=== PATIENT | male | born 1960 | race Caucasian/White ===

== ENCOUNTER 2017-09-10 07:10 | Day surgery (SDC) | payer BC ==
--- NOTE | 2017-09-04 16:17 | RAD REPORT ---
EXAM DESCRIPTION: RADOP - Outpt Chest Pa/Lat (2 Views) - 09/04/2017 4:09 pm CLINICAL HISTORY: Preop, abdominal pain. COMPARISON: None. FINDINGS: The lungs are clear. The heart is normal in size. No displaced fractures. IMPRESSION: No acute or concerning finding suspected.
--- NOTE | 2017-09-04 16:26 | EKG ---
Test Date: 2017-09-04 Test Time: 16:11:02 Powder Monkey: FABIO MEASUREMENT RESULTS: Intervals: Rate: 50 KS: 156 QRSD: 80 QT: 420 QTc: 382 [place]: P: 55 KS: 156 QRS: -30 T: 27 INTERPRETIVE STATEMENTS: Sinus bradycardia Left axis deviation Abnormal ECG No previous ECG available for comparison Electronically Signed On 09-04-17 16:26:18 CDT by Jin Stovall
[2017-09-04 17:02] LABS: Potassium 4.2 mEq/L (3.6-5.0)
[2017-09-04 17:04] LABS: Absolute Lymphocytes (CBC) 1.6 K/uL (0.7-4.9); Absolute Monocytes 0.5 K/uL (0.1-1.3); Absolute Neutrophil 3.3 K/uL (1.8-8.0); Basophils % 0.5 % (0-1.3); Eosinophils % 3.8 % (0-4.4); Hematocrit 42.9 % (39.6-49.0); MCH 32.1 pg (27.0-35.0); MCV 92.8 fL (80-100); MPV 9.5 fL (7.6-11.3); Monocytes % 8.3 % (3.3-12.3); RBC Red Blood Cell Count 4.62 M/uL (4.33-5.43)
[2017-09-10] MEDS ORDERED: Ringers Lactate 1,000 ML IV ONE ×2 (07:43→09:32)
[2017-09-10] MEDS ORDERED: CEFAZOLIN/SWI 1gm 1 GM/10 ML SYR ONE (07:43)
[2017-09-10] MEDS ORDERED: BUPIVACAINE 0.5% PF 10 ML VIAL ONE (07:53)
--- NOTE | 2017-09-10 09:16 | P.BOP ---
Preoperative diagnosis: left inguinal hernia Postoperative diagnosis: same Primary procedure: Laparoscopic left inguinal hernia Director Of Sustainable Design: DARIUS HICKS Estimated blood loss: <10cc Specimen: none Anesthesia: General Complications: None Transferred to: Recovery Room Condition: Good
[2017-09-10] MEDS ORDERED: DEXAMETHASONE 10 MG/ML VIAL ONE (09:31)
[2017-09-10] MEDS ORDERED: LIDOCAINE 2% MPF 5 ML VIAL ONE (09:31)
[2017-09-10] MEDS ORDERED: GLYCOPYRROLATE 0.2 MG/ML SYR ONE (09:31)
[2017-09-10] MEDS ORDERED: ROCURONIUM 50 MG/5 ML VIAL IV ONE (09:31)
[2017-09-10] MEDS ORDERED: ONDANSETRON 4 MG/2 ML VIAL ONE (09:31)
[2017-09-10] MEDS ORDERED: FENTANYL CITR 100 MCG/2 ML ONE (09:31)
[2017-09-10] MEDS ORDERED: MIDAZOLAM HCL 2 MG/2 ML INJ ONE (09:31)
[2017-09-10] MEDS ORDERED: PROPOFOL 200 MG/20 ML VIAL IV ONE (09:31)
[2017-09-10] MEDS ORDERED: KETOROLAC 30 MG/ML INJ ONE (09:36)
[2017-09-10] MEDS ORDERED: NEOSTIGMINE 1 MG/ML -5 ML SYRINGE ONE (09:36)
[2017-09-11] MEDS ORDERED: TAMSULOSIN 0.4 MG SR CAP PO SCH (09:00)
--- NOTE | 2017-09-16 03:56 | OP ---
Date of Procedure: 09/10/2017 Surgeon: Nir Escoto MD Preoperative Diagnosis: Tender left inguinal hernia. Postoperative Diagnosis: Tender left inguinal hernia. Procedure Performed: Laparoscopic repair of left inguinal hernia with mesh. Specimen: None. Anesthesia: General plus local. Complications: None. Indications: This is the case of a male who came to us with a left inguinal hernia with tenderness. The benefits, alternatives, and risks of laparoscopic versus open repair were fully explained to the patient, which included but were not limited to infection, bleeding, damage to adjacent structures, anesthesia complications, chronic numbness, chronic pain, recurrence, DC, and even . He also un derstands this may not relieve any symptoms, and he might need more than one surgical intervention. He understands also chance of bladder injuries, vas deferens and testicular injuries, nerve injuries, and vascular injuries. He understands the pros and cons of mesh placement that were explained to rosita schroeder in detail, and questions were answered to his satisfaction. He understood and signed a consent. Description Of Procedure: The patient was brought to the operating room, placed in supine position. Anesthesia was done without complication. Abdominal area and inguinal region were prepped and drape d in the usual sterile fashion. A time-out was called. The patient was placed in the Trendelenburg position. A small incision was made in the infraumbilical region. The anterior rectus sheath was id entified, opened on the left side, and the muscle was retracted laterally to expose the posterior rec tus sheath. The extraperitoneal space was then developed with the use of blunt dissection and also a balloon pacemaker tip as trocar device directed toward the pubic symphysis. The scope was placed in that area, and the balloon was inflated under direct visualization to create the extraperitoneal spa ce. The balloon was removed. We insufflated the area. We proceeded to place a 5-mm trocar just abo ve the pubic symphysis and another one mcfp between the first and the second one. The preperitone al space was further developed by exposing the inferior epigastric vessels and keeping them anterior. Trace ligament was dissected laterally to the junction with the iliac veins. The dissection was c ontinued inferiorly to the iliopubic tract, avoiding damage to the femoral branch of the genitofemora l nerve and lateral femoral cutaneous nerve. The cord structures were visualized and carefully skele tonized. The hernia was identified and reduced by gentle traction into the peritoneal space. A 2D m esh was placed over the area through the trocar site and aligned with the structures in the area. Th e mesh was placed along the inferior aspect of the working space, and the area covered the direct and indirect spaces. The mesh was secured in place laterally and superior to the iliopubic tract and in ferior and medial to the Trace ligament. The area was checked for hemostasis. The area was irrigat ed. Local anesthetic was applied over the area and carefully was deflated under direct visualization . Trocars were removed. The patient tolerated the procedure well. At the end of the case, the test icles were in the scrotum. The skin area was closed with first the fascia with #1 Vicryl, and then t he skin in subcuticular fashion with 3-0 chromic. Sponge counts and instrument counts were correct. The patient tolerated the procedure well. The patient was sent to Recovery in stable condition. DISCHARGE SUMMARY Diagnosis: Left inguinal hernia. Procedure: Laparoscopic repair of left inguinal hernia. Disposition: Home. Activity: As tolerated. No heavy lifting. Followup: Follow up in my office in 1 week. Call for appointment at [phone]. Keep the area dry fo r 48 hours and then may shower. Apply cold compresses over the left inguinal region. Medications: See orders. CHILO/ISAAC Voice ID: [id number] Report ID: [id number]
== END 2017-09-10 12:20 | disposition home or self-care (01) ==
LOC: OR 07:10
PROVIDERS: ATTEND Surgery
PROC: 0YU64JZ Supplement Left Inguinal Region with Synthetic Substitute, Percutaneous Endoscopic Approach (ICD-10-PCS; principal; 2017-09-10 08:45)
DX: K40.90 Unilateral inguinal hernia, without obstruction or gangrene, not specified as recurrent (principal)
CPT/HCPCS: 36415; 71046; 80048; 85025; 93005; J0690; J1100; J2250; J2405; J2710; J3010

== ENCOUNTER 2017-11-23 04:15 | Emergency (ER) | payer BC ==
[2017-11-23] MEDS ORDERED: DEXAMETHASONE 10 MG/ML VIAL ONE (05:27)
[2017-11-23] MEDS ORDERED: DIAZEPAM 5 MG TABLET ONE (05:27)
[2017-11-23] MEDS ORDERED: KETOROLAC 30 MG/ML INJ ONE (05:27)
[2017-11-23] MEDS ORDERED: NA CHLORIDE 0.9% 1,000 ML ONE (05:27)
[2017-11-23] MEDS ORDERED: ONDANSETRON 4 MG/2 ML VIAL ONE (05:29)
[2017-11-23] MEDS ORDERED: MORPHINE 4 MG/ML SYR ONE (05:30)
[2017-11-23 05:51] LABS: Absolute Monocytes 0.6 K/uL (0.1-1.3); Absolute Neutrophil 3.6 K/uL (1.8-8.0); Basophils % 0.4 % (0-1.3); Eosinophils % 4.4 % (0-4.4); Hematocrit 44.6 % (39.6-49.0); Lymphocytes % 30.7 % (15.3-44.8); MCH 32.3 pg (27.0-35.0); MCV 92.6 fL (80-100); MPV 8.7 fL (7.6-11.3); Monocytes % 9.5 % (3.3-12.3); RBC Red Blood Cell Count 4.82 M/uL (4.33-5.43)
[2017-11-23 05:58] LABS: Albumin 4.4 g/dL (3.2-5.5); Bilirubin Total 0.9 mg/dL (0.3-1.2); Protein, Total 7.3 g/dL (6.0-8.3)
[2017-11-23 06:50] LABS: Urine Blood NEGATIVE (NEG); Urine Glucose NEGATIVE (NEG); Urine Protein NEGATIVE (NEG)
--- NOTE | 2017-11-23 07:22 | EDPHYS ---
Physician Documentation [facility] Name: Dayne Pulido Age: 57 yrs Sex: Male : 1960 Arrival Date: 11/23/2017 Time: 04:18 Bed 16 Private MD: ED Physician aSnjiv Lorenzo HPI: 11/23 05:13 This 57 yrs old Male presents to ER via Wheelchair with complaints of Back royal Pain. 05:13 The patient presents with pain that is acute. The symptoms are located in the posterior royal cervical area and thoracic area. Onset: The symptoms/episode began/occurred 3 day(s) ago. The pain radiates to the left trapezius and thoracic area. Associated signs and symptoms: The patient has no apparent associated signs or symptoms. The problem was sustained from twisting, from unknown cause. Modifying factors: the patient symptoms are aggravated by bending, coughing, movement, standing. Severity of symptoms: At their worst the symptoms were moderate, in the emergency department the symptoms are unchanged. The patient has not experienced similar symptoms in the past. Historical: - Allergies: 05:34 No Known Allergies; bs1 - Home Meds: 05:35 Propranolol Oral as needed [Active]; bs1 - PMHx: 05:34 right hand tremor; bs1 - PSHx: 05:34 hernia sx; bs1 - Immunization history:: Adult Immunizations up to date. - Social history:: Smoking status: Patient/guardian denies using tobacco. - Family history:: not pertinent. - Ebola Screening: : Patient negative for fever greater than or equal to 101.5 degrees Fahrenheit, and additional compatible Ebola Virus Disease symptoms Patient denies exposure to infectious person. ROS: 05:13 Constitutional: Negative for fever, chills, and weight loss, Eyes: Negative for injury, royal pain, redness, and discharge, ENT: Negative for injury, pain, and discharge, Cardiovascular: Negative for chest pain, palpitations, and edema, Respiratory: Negative for shortness of breath, cough, wheezing, and pleuritic chest pain, Abdomen/GI: Negative for abdominal pain, nausea, vomiting, diarrhea, and constipation, : Negative for injury, bleeding, discharge, and swelling, MS/Extremity: Negative for injury and deformity, Skin: Negative for injury, rash, and discoloration, Neuro: Negative for headache, weakness, numbness, tingling, and seizure. 05:13 Neck: Positive for pain with movement, pain at rest, tenderness, of the back and left trapezius and thoracic area and posterior cervical area. Exam: 05:13 Constitutional: This is a well developed, well nourished patient who is awake, alert, royal and in no acute distress. Head/Face: Normocephalic, atraumatic. Eyes: Pupils equal round and reactive to light, extra-ocular motions intact. Lids and lashes normal. Conjunctiva and sclera are non-icteric and not injected. Cornea within normal limits. Periorbital areas with no swelling, redness, or edema. ENT: Nares patent. No nasal discharge, no septal abnormalities noted. Tympanic membranes are normal and external auditory canals are clear. Oropharynx with no redness, swelling, or masses, exudates, or evidence of obstruction, uvula midline. Mucous membranes moist. Neck: Trachea midline, no thyromegaly or masses palpated, and no cervical lymphadenopathy. Supple, full range of motion without nuchal rigidity, or vertebral point tenderness. No Meningismus. Chest/axilla: Normal chest wall appearance and motion. Nontender with no deformity. No lesions are appreciated. Cardiovascular: Regular rate and rhythm with a normal S1 and S2. No gallops, murmurs, or rubs. Normal PMI, no JVD. No pulse deficits. Respiratory: Lungs have equal breath sounds bilaterally, clear to auscultation and percussion. No rales, rhonchi or wheezes noted. No increased work of breathing, no retractions or nasal flaring. Abdomen/GI: Soft, non-tender, with normal bowel sounds. No distension or tympany. No guarding or rebound. No evidence of tenderness throughout. Male : Normal genitalia with no discharge or lesions. Skin: Warm, dry with normal turgor. Normal color with no rashes, no lesions, and no evidence of cellulitis. MS/ Extremity: Pulses equal, no cyanosis. Neurovascular intact. Full, normal range of motion. Neuro: Awake and alert, GCS 15, oriented to person, place, time, and situation. Cranial nerves II-XII grossly intact. Motor strength 5/5 in all extremities. Sensory grossly intact. Cerebellar exam normal. Normal gait. Psych: Awake, alert, with orientation to person, place and time. Behavior, mood, and affect are within normal limits. 05:13 Back: pain, that is moderate, of the left scapular area and thoracic area, ROM is painful, normal spinal alignment noted, CVA tenderness, is absent, muscle spasm, is appreciated in the left scapular area and thoracic area. Vital Signs: 04:24 BP 147 / 74; Pulse 48; Resp 15; Temp 98(T); Pulse Ox 97% on R/A; Weight 90.72 kg; bs1 Height 5 ft. 8 in. (172.72 cm); Pain 10/10; 05:15 BP 127 / 78; Pulse 54; Resp 14; Pulse Ox 99% on R/A; bs1 06:15 BP 118 / 65; Pulse 51; Resp 16; Pulse Ox 95% on R/A; Pain 0/10; bs1 07:29 BP 134 / 78; Pulse 57; Resp 14; Pulse Ox 97% on R/A; Pain 0/10; em 04:24 Body Mass Index 30.41 (90.72 kg, 172.72 cm) bs1 MDM: 04:46 Patient medically screened. [facility] 05:13 Data reviewed: vital signs, nurses notes, lab test result(s), radiologic studies, CT royal scan. 11/23 05:12 Order name: CBC with Diff; Complete Time: 06:37 [facility] 11/23 05:12 Order name: Comprehensive Metabolic Panel; Complete Time: 06:37 [facility] 11/23 05:12 Order name: CT C Spine [facility] 11/23 05:12 Order name: CT Thoracic Spine Wo Cont [facility] 11/23 06:48 Order name: Urine Dipstick--Ancillary (enter results) 11/23 06:43 Order name: Urine Dipstick-Ancillary (obtain specimen); Complete Time: 06:55 [facility] Administered Medications: 05:30 Drug: Decadron - Dexamethasone 10 mg Route: IVP; Site: right antecubital; ao 06:17 Follow up: Response: No adverse reaction bs1 05:30 Drug: Zofran 4 mg Route: IVP; Site: right antecubital; ao 06:17 Follow up: Response: No adverse reaction bs1 05:30 Drug: morphine 2 mg Route: IVP; Site: right antecubital; ao 06:16 Follow up: Response: No adverse reaction bs1 05:39 Drug: TORadol 30 mg Route: IVP; Site: right antecubital; ao 06:17 Follow up: Response: No adverse reaction bs1 05:40 Not Given (Med not available. Changes to Morphine 2mg): fentaNYL (PF) 25 mcg IVP onceao 05:41 Not Given (Med not available. changed to Morphine 2 mg): fentaNYL (PF) 25 mcg IVP ao once 05:41 Drug: Valium 5 mg Route: PO; ao 06:16 Follow up: Response: No adverse reaction bs1 06:45 Drug: NS 0.9% 1000 ml Route: IV; Rate: 1 bolus; Site: right antecubital; ao 07:49 Follow up: IV Status: Completed infusion; IV Intake: 700ml em 07:31 Not Given (Physician Discretion): morphine 2 mg IVP once em Disposition: 11/23/17 07:21 Discharged to Home. Impression: Cervical disc disorder with radiculopathy, Cervical disc disorder with radiculopathy, cervicothoracic region. - Condition is Stable. - Discharge Instructions: Cervical Radiculopathy, Herniated Disk, Herniated Disk, [id number]. - Prescriptions for Ibuprofen 600 mg Oral Tablet - take 1 tablet by ORAL route every 8 hours As needed take with food; 21 tablet. Skelaxin 800 mg Oral Tablet - take 1 tablet by ORAL route every 6 hours As needed; 40 tablet. Tylenol- Codeine #3 300-30 mg Oral Tablet - take 2 tablet by ORAL route every 6 hours As needed; 30 tablet. Medrol (Kike) 4 mg Oral Tablets, Dose Pack - take 1 tablet by ORAL route as directed - follow package instructions; 1 packet. - Medication Reconciliation Form, Thank You Letter, Antibiotic Education, Prescription Opioid Use form. - Follow up: Private Physician; When: 2 - 3 days; Reason: Recheck today's complaints, Continuance of care, Re-evaluation by your physician. Follow up: Otoniel Elizabeth; When: 2 - 3 days; Reason: Recheck today's complaints, Continuance of care, Re-evaluation by your physician. Follow up: Khai Mcqueen MD; When: 2 - 3 days; Reason: Recheck today's complaints, Re-evaluation by your physician. - Problem is new. - Symptoms have improved. Signatures: Dispatcher [employer] [facility] Sanjiv Lorenzo MD MD cha Munoz, Shaheen, LINE CONSTRUCTION SUPERVISOR LINE CONSTRUCTION SUPERVISOR em Joshua Cardona, RN RN Annalee Wagner RN RN bs1 Corrections: (The following items were deleted from the chart) 07:49 07:21 11/23/2017 07:21 Discharged to Home. Impression: Cervical disc disorder with em radiculopathy; Cervical disc disorder with radiculopathy, cervicothoracic region. Condition is Stable. Discharge Instructions: Cervical Radiculopathy, Herniated Disk, Herniated Disk, [id number]. Prescriptions for Ibuprofen 600 mg Oral Tablet - take 1 tablet by ORAL route every 8 hours As needed take with food; 21 tablet, Skelaxin 800 mg Oral Tablet - take 1 tablet by ORAL route every 6 hours As needed; 40 tablet, Tylenol-Codeine #3 300-30 mg Oral Tablet - take 2 tablet by ORAL route every 6 hours As needed; 30 tablet, Medrol (Kike) 4 mg Oral Tablets, Dose Pack - take 1 tablet by ORAL route as directed - follow package instructions; 1 packet. and Forms are Medication Reconciliation Form, Thank You Letter, Antibiotic Education, Prescription Opioid Use. Follow up: Private Physician; When: 2 - 3 days; Reason: Recheck today's complaints, Continuance of care, Re-evaluation by your physician. Follow up: Otoniel Elizabeth; When: 2 - 3 days; Reason: Recheck today's complaints, Continuance of care, Re-evaluation by your physician. Follow up: Khai Mcqueen; When: 2 - 3 days; Reason: Recheck today's complaints, Re-evaluation by your physician. Problem is new. Symptoms have improved. royal
--- NOTE | 2017-11-23 07:22 | ER ---
Nurse's Notes [facility] Name: Dayne Pulido Age: 57 yrs Sex: Male : 1960 Arrival Date: 11/23/2017 Time: 04:18 Bed 16 Private MD: Diagnosis: Cervical disc disorder with radiculopathy;Cervical disc disorder with radiculopathy, cervicothoracic region Presentation: 11/23 04:20 Presenting complaint: Patient states: "Between my shoulder blades, the left upper side bs1 of my back is hurting and it radiates down my left arm, its been hurting for a week.". Transition of care: patient was not received from another setting of care. Onset of symptoms was November 16, 2017. Risk Assessment: Do you want to hurt yourself or someone else? Patient reports no desire to harm self or others. Initial Sepsis Screen: Does the patient meet any 2 criteria? No. Patient's initial sepsis screen is negative. Does the patient have a suspected source of infection? No. Patient's initial sepsis screen is negative. Care prior to arrival: None. 04:20 Method Of Arrival: Wheelchair bs1 04:20 Acuity: MAYCO 4 bs1 Historical: - Allergies: 05:34 No Known Allergies; bs1 - Home Meds: 05:35 Propranolol Oral as needed [Active]; bs1 - PMHx: 05:34 right hand tremor; bs1 - PSHx: 05:34 hernia sx; bs1 - Immunization history:: Adult Immunizations up to date. - Social history:: Smoking status: Patient/guardian denies using tobacco. - Family history:: not pertinent. - Ebola Screening: : Patient negative for fever greater than or equal to 101.5 degrees Fahrenheit, and additional compatible Ebola Virus Disease symptoms Patient denies exposure to infectious person. Screenin:38 Abuse screen: Denies threats or abuse. Denies injuries from another. Nutritional bs1 screening: No deficits noted. Tuberculosis screening: No symptoms or risk factors identified. Fall Risk None identified. Assessment: 04:20 General: Appears in no apparent distress. uncomfortable, Behavior is calm, cooperative, bs1 appropriate for age. Pain: Complains of pain in left scapular area and back and left trapezius and thoracic area and posterior cervical area Pain radiates to left arm. Neuro: Level of Consciousness is awake, alert, obeys commands, Oriented to person, place, time, situation, Appropriate for age. Cardiovascular: Denies chest pain, shortness of breath, Heart tones S1 S2 present Capillary refill < 3 seconds Patient's skin is warm and dry. Respiratory: Airway is patent Trachea midline Respiratory effort is even, unlabored, Respiratory pattern is regular, symmetrical, Breath sounds are clear bilaterally. GI: No signs and/or symptoms were reported involving the gastrointestinal system. : No signs and/or symptoms were reported regarding the genitourinary system. EENT: No signs and/or symptoms were reported regarding the EENT system. Derm: Skin is intact, Skin is pink, warm \\T\\ dry. Musculoskeletal: Circulation, motion, and sensation intact. Capillary refill < 3 seconds, Reports pain in left scapular area and back and left trapezius and thoracic area and posterior cervical area, left arm. 05:39 Reassessment: No changes from previously documented assessment. Patient and/or family bs1 updated on plan of care and expected duration. Pain level reassessed. Patient is alert, oriented x 3, equal unlabored respirations, skin warm/dry/pink. Patient going for CT. 05:42 Reassessment: Received a verbal order from Dr Lorenzo to changes Fentanyl for Morphine.ao 06:12 Reassessment: Patient back from CT, states feeling better w/ pain medication. No bs1 further needs at this time. Pending results of CT. 06:46 Reassessment: Patient and/or family updated on plan of care and expected duration. Pain ao level reassessed. Patient states that his pain is better and doesn't requires any more pain medications at this time. 07:02 Reassessment: Report given to JESSA Jamison. bs1 07:24 Reassessment: Patient appears in no apparent distress at this time. Patient and/or em family updated on plan of care and expected duration. Pain level reassessed. Patient is alert, oriented x 3, equal unlabored respirations, skin warm/dry/pink. Patient states feeling better. Vital Signs: 04:24 BP 147 / 74; Pulse 48; Resp 15; Temp 98(T); Pulse Ox 97% on R/A; Weight 90.72 kg; bs1 Height 5 ft. 8 in. (172.72 cm); Pain 10/10; 05:15 BP 127 / 78; Pulse 54; Resp 14; Pulse Ox 99% on R/A; bs1 06:15 BP 118 / 65; Pulse 51; Resp 16; Pulse Ox 95% on R/A; Pain 0/10; bs1 07:29 BP 134 / 78; Pulse 57; Resp 14; Pulse Ox 97% on R/A; Pain 0/10; em 04:24 Body Mass Index 30.41 (90.72 kg, 172.72 cm) bs1 ED Course: 04:18 Patient arrived in ED. bb 04:45 Sanjiv Lorenzo MD is Attending Physician. royal 04:45 Patient has correct armband on for positive identification. Placed in gown. Bed in low bs1 position. Call light in reach. Side rails up X 1. Pulse ox on. NIBP on. 05:05 Annalee Hussein, RN is Primary Nurse. bs1 05:07 Triage completed. bs1 05:[address] via wheelchair. kw1 05:30 Inserted saline lock: 22 gauge in left antecubital area, using aseptic technique. Blood bs1 collected. 05:39 Arm band placed on left wrist. bs1 06:34 CT C Spine In Process Unspecified. EDMS 06:34 CT Thoracic Spine Wo Cont In Process Unspecified. EDMS 07:21 Otoniel Elizabeth MD is Referral Physician. royal 07:21 Khai Mcqueen MD is Referral Physician. royal 07:47 No provider procedures requiring assistance completed. IV discontinued, intact, em bleeding controlled, No redness/swelling at site. Pressure dressing applied. Administered Medications: 05:30 Drug: Decadron - Dexamethasone 10 mg Route: IVP; Site: right antecubital; ao 06:17 Follow up: Response: No adverse reaction bs1 05:30 Drug: Zofran 4 mg Route: IVP; Site: right antecubital; ao 06:17 Follow up: Response: No adverse reaction bs1 05:30 Drug: morphine 2 mg Route: IVP; Site: right antecubital; ao 06:16 Follow up: Response: No adverse reaction bs1 05:39 Drug: TORadol 30 mg Route: IVP; Site: right antecubital; ao 06:17 Follow up: Response: No adverse reaction bs1 05:40 Not Given (Med not available. Dr Changes to Morphine 2mg): fentaNYL (PF) 25 mcg IVP onceao 05:41 Not Given (Med not available. Dr changed to Morphine 2 mg): fentaNYL (PF) 25 mcg IVP ao once 05:41 Drug: Valium 5 mg Route: PO; ao 06:16 Follow up: Response: No adverse reaction bs1 06:45 Drug: NS 0.9% 1000 ml Route: IV; Rate: 1 bolus; Site: right antecubital; ao 07:49 Follow up: IV Status: Completed infusion; IV Intake: 700ml em 07:31 Not Given (Physician Discretion): morphine 2 mg IVP once em Intake: 07:49 IV: 700ml; Total: 700ml. em Outcome: 07:21 Discharge ordered by . [facility] 07:48 Discharged to home ambulatory. em 07:48 Condition: good 07:48 Discharge instructions given to patient, family, Instructed on discharge instructions, follow up and referral plans. no drinking with medication, no driving heavy equipment, medication usage, Demonstrated understanding of instructions, follow-up care, medications, Prescriptions given X 4. 07:49 Patient left the ED. em Signatures: Dispatcher [employer] [facility] Sanjiv Lorenzo MD MD cha Munoz, Shaheen, POULTRY PICKER POULTRY PICKER em Socorro Perez, RN Joshua Jackman RN RN Rosario Welsh kw1 Annalee Hussein RN RN bs1
--- NOTE | 2017-11-23 11:24 | RAD REPORT ---
EXAM DESCRIPTION: CT - Thoracic Spine W/o Cont - 11/23/2017 7:31 am CLINICAL HISTORY: Radiculopathy. Pain;Numbness/tingling COMPARISON: C Spine Wo Con dated 11/23/2017 TECHNIQUE: Axial CT imaging through the thoracic spine was performed with coronal and sagittal re-fo rmatted images. All CT scans are performed using dose optimization technique as appropriate and may include automated exposure control or mA/KV adjustment according to patient size. FINDINGS: Vertebral body heights and disc spaces are maintained. A compression fracture is not prese nt. Mild thoracic spondylosis in the form predominately of disc thinning. Thoracic spine alignment is within normal limits. No paraspinal masses or hematoma. Intervertebral disc detail is inherently limited on CT without gross findings of canal compromise. IMPRESSION: No acute abnormality detected.
--- NOTE | 2017-11-23 11:27 | RAD REPORT ---
EXAM DESCRIPTION: CT - C Spine Wo Con - 11/23/2017 6:34 am CLINICAL HISTORY: PAIN Radiculopathy. COMPARISON: Thoracic Spine W/o Cont dated 11/23/2017 FINDINGS: Moderate degenerative changes present involving the lower cervical levels, most notable at C5-6 and C6-7. Prominent facet arthrosis is also noted at C3-4 and C4-5. No acute fracture or sublux ation is suspected. The prevertebral soft tissues are normal. IMPRESSION: Moderate cervical degenerative change without acute findings seen.
== END 2017-11-23 07:49 | disposition home or self-care (01) ==
LOC: ER 04:15
DX: M50.13 Cervical disc disorder with radiculopathy, cervicothoracic region (principal)
CPT/HCPCS: 36415; 72125; 72128; 80053; 81003; 85025; 96361; 96374; 96375; 99284; J1100; J2405; J7030

== ENCOUNTER 2020-08-05 09:20 | Inpatient (IN) | payer BC ==
--- OUTSIDE RECORDS SUMMARY | 2020-08-05 09:23 | XMS REPORT | Continuity of Care Document ---
:1960 Author Organization [facility] t Address [address] [place] [address] Care Team Providers Name Role Phone Kamlesh Garcia MD Attending Clinician Problems This patient has no known problems. Allergies, Adverse Reactions, Alerts This patient has no known allergies or adverse reactions. Medications This patient has no known medications. Procedures This patient has no known procedures. Encounters Start End Encounter Admission Attending Care Care Encounter Source Date/Time Date/Time Type Type Clinicians Facility Department ID 2019-11-02 2019-11-02 TelemedicHARIS Woodson [id number] 08:40:15 08:55:15 ne Visit Artemio Hernandez [id number] Kamlesh Delatorre [id number] Profdariel [phone] nal 044 Building Results This patient has no known results.
[2020-08-05 10:18] LABS: Absolute Lymphocytes (CBC) 1.6 K/uL (0.7-4.9); Basophils % 0.6 % (0-1.3); Hematocrit 42.1 % (39.6-49.0); Lymphocytes % 37.9 % (15.3-44.8); MPV 9.1 fL (7.6-11.3)
[2020-08-05 10:28] LABS: Protime INR 0.86
[2020-08-05 10:38] LABS: Albumin 3.8 g/dL (3.4-5.0); Bilirubin Direct 0.2 mg/dL (0-0.2); Bilirubin Total 1.3 mg/dL (0.2-1.0); Magnesium 2.2 mg/dL (1.8-2.4); Troponin (Emerg Dept Use Only) 0.31 ng/mL (0.0-0.045)
[2020-08-05] MEDS ORDERED: ASPIRIN 81 MG CHEWABLE TABLET ONE (10:45)
--- NOTE | 2020-08-05 11:07 | ER ---
Nurse's Notes [facility] Name: Dayne Pulido Age: 60 yrs Sex: Male : 1960 Arrival Date: 08/05/2020 Time: 09:24 Bed 16 Private MD: Artemio Garcia Diagnosis: Non-ST elevation (NSTEMI) myocardial infarction Presentation: 08/05 09:43 Chief complaint: Patient states: Chest pain yesterday after doing yard work, systolic ph BP 150s, took Propranolol that he uses PRN for tremor , drank fluids and pain improved, reports urinary frequency today but denies burning, states when chest pain occurred it was in mid-sternal area, denies SOB, nausea or dizziness, denies pain at this time. Coronavirus screen: Client denies travel out of the [place] in the last 14 days. At this time, the client does not indicate any symptoms associated with coronavirus-19. Ebola Screen: No symptoms or risks identified at this time. Initial Sepsis Screen: Does the patient meet any 2 criteria? No. Patient's initial sepsis screen is negative. Does the patient have a suspected source of infection? No. Patient's initial sepsis screen is negative. Risk Assessment: Do you want to hurt yourself or someone else? Patient reports no desire to harm self or others. Onset of symptoms was August 05, 2020. 09:43 Method Of Arrival: Ambulatory 09:43 Acuity: [facility] 3 ph Triage Assessment: 09:49 General: Appears in no apparent distress. comfortable, well groomed, Behavior is calm, ph cooperative, appropriate for age, Denies fever, feeling ill. Pain: Denies pain. Neuro: Level of Consciousness is awake, alert, obeys commands, Oriented to person, place, time, situation. Cardiovascular: Reports chest pain, yesterday Chest pain is located in substernal area. Respiratory: Airway is patent Respiratory effort is even, unlabored, Respiratory pattern is regular, symmetrical, Denies shortness of breath. GI: No signs and/or symptoms were reported involving the gastrointestinal system. Patient currently denies nausea, vomiting. : Reports urinary frequency, Denies burning with urination. Derm: Skin is intact, is healthy with good turgor, Skin is pink, warm \T\ dry. Musculoskeletal: Circulation, motion, and sensation intact. Range of motion: intact in all extremities. Historical: - Allergies: 09:49 No Known Allergies; ph - Home Meds: 09:49 Propranolol Oral as needed [Active]; ph - PMHx: 09:49 right hand tremor; ph - PSHx: 09:49 hernia sx; ph - Immunization history:: Adult Immunizations unknown. - Social history:: Smoking status: Patient denies any tobacco usage or history of. Screenin:47 Abuse screen: Denies threats or abuse. Denies injuries from another. Nutritional ph screening: No deficits noted. Tuberculosis screening: No symptoms or risk factors identified. Fall Risk None identified. Assessment: 10:00 General: No changes from previous assessment, see triage note. ph 11:15 Reassessment: Patient appears in no apparent distress at this time. Patient and/or ph family updated on plan of care and expected duration. Pain level reassessed. Patient is alert, oriented x 3, equal unlabored respirations, skin warm/dry/pink. Pt ambulated to restroom w/ steady gait, denies dizziness or pain, urine sample collected. 13:26 Reassessment: Patient appears in no apparent distress at this time. Patient and/or vg1 family updated on plan of care and expected duration. Pain level reassessed. Patient is alert, oriented x 3, equal unlabored respirations, skin warm/dry/pink. Patient denies pain at this time. Patient states feeling better. 13:33 Reassessment: attempted to call report. vg1 13:46 Reassessment: Attempted to call report. vg1 14:06 Reassessment: attempted to call report. vg1 Vital Signs: 09:43 BP 165 / 85; Pulse 55; Resp 18; Temp 97.4; Pulse Ox 100% on R/A; Weight 84.82 kg; ph Height 5 ft. 8 in. (172.72 cm); Pain 0/10; 10:40 BP 130 / 73; Pulse 54; Resp 18; Pulse Ox 99% on R/A; ph 11:30 BP 142 / 80; Pulse 55; Resp 18; Pulse Ox 98% ; Pain 0/10; ph 13:26 BP 145 / 72; Pulse 61; Resp 18; Pulse Ox 100% ; vg1 09:43 Body Mass Index 28.43 (84.82 kg, 172.72 cm) ED Course: 09:24 Patient arrived in ED. mr 09:24 Artemio Garcia MD is Private Physician. mr 09:29 Dominic Morrow NP is PHCP. pm1 09:29 Sanjiv Lorenzo MD is Attending Physician. pm1 09:42 Ronda Smith, RN is Primary Nurse. ph 09:45 Initial lab(s) drawn, by pr, sent to lab. Inserted saline lock: 22 gauge in left kj1 antecubital area, using aseptic technique. Blood collected. 09:47 Triage completed. ph 09:48 Patient has correct armband on for positive identification. Placed in gown. Bed in low ph position. Call light in reach. surveillance system monitor on. Pulse ox on. NIBP on. Door closed. Noise minimized. Warm blanket given. 09:48 Arm band placed on Patient placed in an exam room, on a stretcher, on cardiac cath rn, ph on pulse oximetry. 09:55 No provider procedures requiring assistance completed. Patient maintains SpO2 ph saturation greater than 95% on room air. 09:56 XRAY Chest (1 view) In Process Unspecified. EDMS 11:05 Stefan Camilo MD is Hospitalizing Provider. pm1 12:13 Primary Nurse role handed off by Ronda Smith, RN vg1 12:13 Virgen Spaulding, EUNICE is Primary Nurse. vg1 12:18 Patient admitted, IV remains in place. ph Administered Medications: 10:45 Drug: Aspirin 325 mg Route: PO; ph 12:16 Follow up: Response: No adverse reaction ph 11:29 Drug: PlaVIX 300 mg Route: PO; ph 12:16 Follow up: Response: No adverse reaction ph 11:32 Not Given (Physician Discretion): Heparin ([place]-Bolus No thrombolytic) - HEParin 60 pm1 units/kg IVP once; Max 5000 units 11:32 Not Given (Physician Discretion): Heparin ([place] Drip) 12 units/kg/hr - (HEParin 61144 pm1 units, D5W 500 ml) IV at calculated rate Per protocol; Max initial rate 1000 units/hr 11:43 Drug: Lovenox 1 mg/kg Route: Sub-Q; Site: left lower abdomen; ph 12:16 Follow up: Response: No adverse reaction ph 11:44 Drug: Atorvastatin 40 mg Route: PO; ph 12:16 Follow up: Response: No adverse reaction ph 13:00 Drug: Metoprolol 25 mg Route: PO; vg1 15:12 Follow up: Response: No adverse reaction vg1 Outcome: 11:05 Decision to Hospitalize by Provider. pm1 14:14 Admitted to Tele accompanied by sue, via wheelchair, room 213, with chart, Report vg1 called to EUNICE Mclean 14:14 Condition: stable 14:14 Instructed on the need for admit. 14:28 Patient left the ED. vg1 Signatures: Dispatcher [employer] Anna Black Patricia, RN RN Dominic Velez, TAG WRITER TAG WRITER pm1 Eleanor Ball1 Virgen Spaulding RN RN vg1
--- NOTE | 2020-08-05 11:07 | EDPHYS ---
Physician Documentation [facility] Name: Dayne Pulido Age: 60 yrs Sex: Male : 1960 Arrival Date: 08/05/2020 Time: 09:24 Bed 16 Private MD: Artemio Garcia ED Physician Sanjiv Lorenzo HPI: 08/05 10:05 This 60 yrs old Male presents to ER via Ambulatory with complaints of Chest pm1 Tightness, Urinary Problem, Blood Pressure Problem. 10:05 The patient or guardian reports chest pain that is located primarily in the mid-sternal pm1 area. 10:05 Onset: yesterday. The pain does not radiate. Associated signs and symptoms: The patient pm1 has no apparent associated signs or symptoms, Pertinent negatives: abdominal pain, cough, diaphoresis, dizziness, headache, nausea, shortness of breath, syncope, vomiting. The chest pain is described as sharp. Duration: The patient or guardian reports a single episode, that is now resolved, that lasted 1.5 hour(s). Modifying factors: The symptoms are alleviated by rest. Severity of pain: At its worst the pain was severe in the emergency department the pain has resolved since yesterday. The patient has not experienced similar symptoms in the past. The patient has been recently seen by a physician: with different complaint(s), right hand tremor and prescribed propanolol which he takes PRN. Patient was working on his shed yesterday and then came into the house and started experiencing chest pain at 1700. Chest pain lasted for about 1.5 hours and resolved after resting and taking an aspirin and propanolol. he has been chest pain free since 1830 yesterday. he came into the ER today because of the chest pain yesterday and elevated blood pressure today. Historical: - Allergies: 09:49 No Known Allergies; ph - Home Meds: 09:49 Propranolol Oral as needed [Active]; ph - PMHx: 09:49 right hand tremor; ph - PSHx: 09:49 hernia sx; ph - Immunization history:: Adult Immunizations unknown. - Social history:: Smoking status: Patient denies any tobacco usage or history of. ROS: 10:05 Constitutional: Negative for fever, chills, and weight loss, Eyes: Negative for injury, pm1 pain, redness, and discharge, ENT: Negative for injury, pain, and discharge, Neck: Negative for injury, pain, and swelling. 10:05 Respiratory: Negative for shortness of breath, cough, wheezing, and pleuritic chest pain, Abdomen/GI: Negative for abdominal pain, nausea, vomiting, diarrhea, and constipation, Back: Negative for injury and pain. 10:05 MS/Extremity: Negative for injury and deformity, Skin: Negative for injury, rash, and discoloration, Neuro: Negative for headache, weakness, numbness, tingling, and seizure. 10:05 Cardiovascular: Positive for chest pain, of the mid-sternal area, Negative for edema, palpitations. 10:05 : Positive for urinary frequency, Negative for burning with urination. Exam: 10:05 Constitutional: This is a well developed, well nourished patient who is awake, alert, pm1 and in no acute distress. Head/Face: Normocephalic, atraumatic. Chest/axilla: Normal chest wall appearance and motion. Nontender with no deformity. No lesions are appreciated. Cardiovascular: Regular rate and rhythm with a normal S1 and S2. No gallops, murmurs, or rubs. Normal PMI, no JVD. No pulse deficits. Respiratory: Lungs have equal breath sounds bilaterally, clear to auscultation and percussion. No rales, rhonchi or wheezes noted. No increased work of breathing, no retractions or nasal flaring. 10:05 Back: No spinal tenderness. No costovertebral tenderness. Full range of motion. Skin: Warm, dry with normal turgor. Normal color with no rashes, no lesions, and no evidence of cellulitis. MS/ Extremity: Pulses equal, no cyanosis. Neurovascular intact. Full, normal range of motion. 10:05 Abdomen/GI: Exam negative for acute changes, Inspection: abdomen appears normal, Palpation: abdomen is soft and non-tender, in all quadrants. 10:05 Neuro: Exam negative for acute changes, Orientation: is normal, Mentation: is normal, Motor: is normal. 10:05 Neuro: Abnormal movements: resting tremor, is located in the right hand. pm1 Vital Signs: 09:43 BP 165 / 85; Pulse 55; Resp 18; Temp 97.4; Pulse Ox 100% on R/A; Weight 84.82 kg; ph Height 5 ft. 8 in. (172.72 cm); Pain 0/10; 10:40 BP 130 / 73; Pulse 54; Resp 18; Pulse Ox 99% on R/A; ph 11:30 BP 142 / 80; Pulse 55; Resp 18; Pulse Ox 98% ; Pain 0/10; ph 13:26 BP 145 / 72; Pulse 61; Resp 18; Pulse Ox 100% ; vg1 09:43 Body Mass Index 28.43 (84.82 kg, 172.72 cm) ph MDM: 09:29 Patient medically screened. pm1 10:05 Data reviewed: vital signs. pm1 11:03 Counseling: I had a detailed discussion with the patient and/or guardian regarding: the pm1 historical points, exam findings, and any diagnostic results supporting the discharge/admit diagnosis, lab results, radiology results, the need for further work-up and treatment in the hospital. 11:33 Physician consultation: Jin Stovall MD was called at 11:07, was contacted at 11:30, pm1 regarding consult, patient's condition, and will see patient later today, would like medications started, Aspirin, beta ang, Lovenox, statin. 08/05 09:37 Order name: Basic Metabolic Panel; Complete Time: 10:56 pm1 08/05 09:37 Order name: CBC with Diff; Complete Time: 10:36 pm1 08/05 09:37 Order name: LFT's; Complete Time: 10:56 pm1 08/05 09:37 Order name: Magnesium; Complete Time: 10:56 pm1 08/05 09:37 Order name: NT PRO-BNP; Complete Time: 10:56 pm1 08/05 09:37 Order name: PT-INR; Complete Time: 10:56 pm1 08/05 09:37 Order name: Troponin (emerg Dept Use Only); Complete Time: 10:56 pm1 08/05 11:42 Order name: Urine Dipstick--Ancillary (enter results); Complete Time: 12:31 dh3 08/05 12:17 Order name: SARS-COV-2 RT PCR; Complete Time: 12:23 EDMS 08/05 12:17 Order name: Lipid Profile [facility] 08/05 12:17 Order name: Lipid Profile [facility] 08/05 09:37 Order name: XRAY Chest (1 view); Complete Time: 11:36 pm1 08/05 09:37 Order name: EKG; Complete Time: 09:39 pm1 08/05 12:02 Order name: CONS Physician Consult [facility] 08/05 12:17 Order name: Heart Healthy [facility] 08/05 12:17 Order name: Troponin I [facility] 08/05 12:17 Order name: Troponin I [facility] 08/05 12:17 Order name: Troponin I [facility] 08/05 12:31 Order name: Basic Metabolic Panel [facility] 08/05 12:31 Order name: CBC with Automated Diff [facility] 08/05 09:37 Order name: Cardiac monitoring; Complete Time: 09:52 pm1 08/05 09:37 Order name: EKG - Nurse/Tech; Complete Time: 09:52 pm08/05 09:37 Order name: IV Saline Lock; Complete Time: 09:53 pm08/05 09:37 Order name: Labs collected and sent; Complete Time: 09:53 pm1 08/05 09:37 Order name: O2 Per Protocol; Complete Time: 09:57 pm08/05 09:37 Order name: O2 Sat Monitoring; Complete Time: 09:57 pm1 08/05 11:18 Order name: Urine Dipstick-Ancillary (obtain specimen); Complete Time: 11:28 pm1 08/05 12:17 Order name: EKG Electrocardiogram [facility] 08/05 12:17 Order name: EKG Electrocardiogram [facility] 08/05 12:17 Order name: EKG Electrocardiogram [facility] Administered Medications: 10:45 Drug: Aspirin 325 mg Route: PO; ph 12:16 Follow up: Response: No adverse reaction ph 11:29 Drug: PlaVIX 300 mg Route: PO; ph 12:16 Follow up: Response: No adverse reaction ph 11:32 Not Given (Physician Discretion): Heparin ([place]-Bolus No thrombolytic) - HEParin 60 pm1 units/kg IVP once; Max 5000 units 11:32 Not Given (Physician Discretion): Heparin ([place] Drip) 12 units/kg/hr - (HEParin 12873 pm1 units, D5W 500 ml) IV at calculated rate Per protocol; Max initial rate 1000 units/hr 11:43 Drug: Lovenox 1 mg/kg Route: Sub-Q; Site: left lower abdomen; ph 12:16 Follow up: Response: No adverse reaction ph 11:44 Drug: Atorvastatin 40 mg Route: PO; ph 12:16 Follow up: Response: No adverse reaction ph 13:00 Drug: Metoprolol 25 mg Route: PO; vg1 15:12 Follow up: Response: No adverse reaction vg1 Disposition: 08/05/20 11:05 Hospitalization ordered by Stefan Camilo for Inpatient Admission. Preliminary diagnosis is Non-ST elevation (NSTEMI) myocardial infarction. - Bed requested for Telemetry/MedSurg (Inpatient). - Status is Inpatient Admission. vg1 - Condition is Stable. - Problem is new. - Symptoms have improved. Addendum: 08/07/2020 06:10 Co-signature as Attending Physician, Sanjiv Lorenzo MD I agree with the assessment and c [place] plan of care. Signatures: Dispatcher [employer] EDMS Keri Silva, RN Sanjiv Dalal MD MD cha Hall, Patricia, RN RN Dominic Morrow, SECURITY VEHICLE PATROL OFFICER SECURITY VEHICLE PATROL OFFICER pm1 Virgen Spaulding RN RN vg1 Corrections: (The following items were deleted from the chart) 08/05 11:18 09:37 Orthostatics ordered. pm1 pm1 11:38 11:14 CORONAVIRUS+MR.LAB.BRZ ordered. ED[facility] EDMS 12:31 12:17 Basic Metabolic Panel ordered. [facility] EDMS 12:31 12:17 CBC with Automated Diff ordered. [facility] EDMS 12:32 10:05 Neuro: Exam negative for acute changes, Orientation: is normal, Mentation: is pm1 normal, Motor: is normal, pm1 12:40 11:05 Hospitalization Ordered by Stefan Camilo MD for Inpatient Admission. Preliminary dw diagnosis is Non-ST elevation (NSTEMI) myocardial infarction. Bed requested for Telemetry/MedSurg (Inpatient). Status is Inpatient Admission. Condition is Stable. Problem is new. Symptoms have improved. pm1 14:28 12:40 08/05/2020 11:05 Hospitalization Ordered by Stefan Camilo MD for Inpatient vg1 Admission. Preliminary diagnosis is Non-ST elevation (NSTEMI) myocardial infarction. Bed requested for Telemetry/MedSurg (Inpatient). Status is Inpatient Admission. Condition is Stable. Problem is new. Symptoms have improved. dw
--- NOTE | 2020-08-05 11:26 | RAD REPORT ---
EXAM DESCRIPTION: RAD - Chest Single View - 08/05/2020 9:56 am CLINICAL HISTORY: CHEST PAIN Chest pain. COMPARISON: No comparisons FINDINGS: Portable technique limits examination quality. The lungs are grossly clear. The heart is normal in size. No displaced fractures. IMPRESSION: No acute intrathoracic process suspected.
[2020-08-05] MEDS ORDERED: CLOPIDOGREL 75 MG TABLET ONE (11:28)
[2020-08-05] MEDS ORDERED: ATORVASTATIN 20 MG TAB ONE (11:51)
[2020-08-05] MEDS ORDERED: ENOXAPARIN 80 MG/0.8 ML SQ ONE (11:51)
[2020-08-05] MEDS ORDERED: ACETAMINOPHEN 500 MG TAB PO PRN (12:02)
[2020-08-05] MEDS ORDERED: NITROGLYCERIN 0.4 MG/TAB SL PRN (12:02)
[2020-08-05] MEDS ORDERED: MORPHINE 4 MG/ML SYR IV PRN (12:02)
--- NOTE | 2020-08-05 12:29 | P.HP ---
Certification for Inpatient Patient admitted to: Inpatient With expected LOS: >2 Midnights Patient will require the following post-hospital care: None Practitioner: I am a practitioner with admitting privileges, knowledge of patient current condition, hospital course, and medical plan of care. Services: Services provided to patient in accordance with Admission requirements found in Title 42 Section 412.3 of the Code of Federal Regulations <Kishor Hyatt James - Last Filed: 08/05/20 14:30> Patient History Date of Service: 08/05/20 Reason for admission: chest pain, elevated troponin History of Present Illness: Mr. Pulido is a 60 yo male with essential tremors here today for acute chest pain and elevated BP. Yesterday, he was doing some work on the house when he had sudden onset of 8/10 sharp sternal chest pain radiating down his left arm and lasting for 30 minutes. He also said he felt very hot, and had to sit down. He took a baby aspirin and 5 mg of propanol and symptoms resolved. He denies nausea, vomiting, SOB, PND, orthopnea, dizziness, and vision changes. CXR normal. EKG showing sinus bradycardia. Troponins elevated at 0.31. BNP 201. Home medications list reviewed: No - Past Medical/Surgical History Has patient received pneumonia vaccine in the past: No Diabetic: No -: essential tremors -: inguinal hernia repair - Social History Smoking Status: Never smoker Alcohol use: Yes CD- Drugs: No Caffeine use: No Place of Residence: Home <Kishor Hyatt - Last Filed: 08/05/20 14:30> Date of Service: 08/05/20 <Stefan Camilo - Last Filed: 08/07/20 03:12> Allergies No Known Allergies Allergy (Verified 09/04/17 15:59) Home Medications: Propranolol HCl 20 mg PO DAILYPRN PRN 09/04/17 Review of Systems General: Sweats, As per HPI Eyes: Unremarkable ENT: Unremarkable Respiratory: Unremarkable Cardiovascular: Chest Pain, As per HPI Gastrointestinal: Unremarkable Genitourinary: Unremarkable Musculoskeletal: Unremarkable Integumentary: Unremarkable Neurological: Unremarkable Lymphatics: Unremarkable <Kishor Hyatt - Last Filed: 08/05/20 14:30> Physical Examination - Vital Signs Temperature: 97.4 F Blood Pressure: 165/85 Pulse: 55 Respirations: 18 Pulse Ox (%): 100 - Physical Exam General: Alert, In no apparent distress, Oriented x3, Cooperative HEENT: Atraumatic, Normocephalic, PERRLA, Mucous membr. moist/pink, EOMI, Sclerae nonicteric Neck: Supple, 2+ carotid pulse no bruit, JVD not distended, No Thyromegaly, No LAD Respiratory: Clear to auscultation bilaterally, Normal air movement Cardiovascular: No edema, Normal pulses, Regular rate/rhythm, Normal S1 S2, No gallops, No rubs, No murmurs Capillary refill: <2 Seconds Gastrointestinal: Normal bowel sounds, Soft and benign, Non-distended, No ascites, No tenderness, No masses, No rebound, No guarding Musculoskeletal: No clubbing, No swelling, No contractures, No erythema, No tenderness, No warmth Integumentary: No rashes, No breakdown, No significant lesion, No tenderness/swelling, No erythema, No warmth, No cyanosis Neurological: Normal gait, Normal speech, Normal strength at 5/5 x4 extr, Normal tone, Sensation intact, Cranial nerves 3-12 intact, Normal affect Lymphatics: No axilla or inguinal lymphadenopathy - Studies Laboratory Data (last 24 hrs) 08/05/20 09:49: PT 9.9, INR 0.86 08/05/20 09:49: WBC 4.20 L, Hgb 14.7, Hct 42.1, Plt Count 219 08/05/20 09:49: Sodium 142, Potassium 4.0, BUN 15, Creatinine 1.02, Glucose 98, Magnesium 2.2, Total Bilirubin 1.3 H, AST 21, ALT 42, Alkaline Phosphatase 108 <Kishor Hyatt - Last Filed: 08/05/20 14:30> Assessment and Plan - Problems (Diagnosis) (1) NSTEMI (non-ST elevated myocardial infarction) Current Visit: Yes Status: Acute Plan: in the ER, patient received aspirin, plavix, atorvastatin and lovenox. cardiology is on board and plans to cath on Friday. cardiology would like to continue full dose lovenox, aspirin, and statin, no heparin drip and no plavix. BB held due to sinus bradycardia, patient now has HR of 60, so gave 25mg of metoprolol in the ER. will continue 25mg BID of metoprolol if HR is >60 and SBP >100. patient currently without chest pain. CXR without findings. EKG showing sinus bradycardia. Troponin of 0.31. will continue to monitor. (2) Chest pain Current Visit: Yes Status: Acute Plan: PRN morphine and sublinguql NTG for chest pain. currently without pain. continue to monitor. Qualifiers: Chest pain type: unspecified Qualified Code(s): R07.9 - Chest pain, unspecified (3) Elevated troponin Current Visit: Yes Status: Acute Plan: initial troponin 0.31. will trend troponins and EKG. continue to monitor. (4) Elevated blood pressure reading Current Visit: Yes Status: Acute Plan: will start lisinopril 20 mg BID for management of blood pressure. continue to monitor. (5) Essential tremor Current Visit: Yes Status: Acute Plan: patient occasionally takes propanolol 5mg for an essential tremor. currently stable. will continue to monitor. Discharge Plan: Home Plan to discharge in: 72 Hours - Advance Directives Does patient have a Living Will: No Does patient have a Durable POA for Healthcare: No - Code Status/Comfort Care Code Status Assessed: Yes (full code ) Critical Care: No Time Spent Managing Pts Care (In Minutes): 70 <Kishor Hyatt - Last Filed: 08/05/20 14:30> Date of Service: 08/05/20 Patient is doing well with no new complaints. Clinical symptoms continue to improve. Heart catheterization on Friday per cardiology recommendations. <Stefan Camilo - Last Filed: 08/07/20 03:12>
[2020-08-05 12:30] LABS: Urine Blood NEGATIVE (NEG); Urine Glucose NEGATIVE (NEG); Urine Protein NEGATIVE (NEG); Urine Specific Gravity 1.025 (1.005-1.030)
[2020-08-05] MEDS ORDERED: METOPROLOL TAR 25 MG TAB ONE (13:49)
[2020-08-05 15:17] VITALS: BMI 28.4
[2020-08-05] MEDS: ENOXAPARIN 80 MG/0.8 ML SQ SCH ×2 (17:09→21:00)
--- NOTE | 2020-08-05 20:17 | CON ---
Date of Consultation: 08/05/2020 Reason For Consultation: [id number] myocardial infarction. History Of Present Illness: Mr. Pulido is a 60-year-old male, who had no previous cardiac history, h as a strong family history of heart disease, had an episode of chest tightness yesterday that lasted about 30 minutes that he scaled about 8/10 without any nausea, vomiting, diaphoresis, PND, orthopnea, pedal edema, palpitation, or syncope. He denied any fever or chills. He had noticed his blood pres sure being more elevated than usual. Recently had an episode of vertigo. When he came to the emerge ncy room, he was found to have a troponin of 0.31, consistent with non-ST elevation myocardial infarc tion. He is pain free now. Past Medical History: Include benign prostatic hypertrophy and essential tremor. Family History: Positive for heart disease and essential tremor. Review of Systems: Negative. Social History: Negative. Family History: Positive as stated earlier. Medications At Home: Include propranolol and Flomax. Physical Examination: Vital Signs: Stable. Afebrile. HEENT: Negative. Neck: Supple with no bruit. Chest: Clear. Cardiac: Normal. Abdomen: Benign. Extremities: No clubbing, cyanosis, or edema. Diagnostic Data: Chest x-ray was negative. Troponin is 0.31. Rest of the blood work was negative. EKG showed left axis deviation, no acute changes. Impression And Plan: 1.Mby-NG-oswwnbkug myocardial infarction. 2.Essential tremor. 3.Benign prostatic hypertrophy. 4.Positive family history of heart disease. The patient is to be on aspirin, beta blockers, statin, Lovenox, DARVIN inhibitor. He already received 300 mg of Plavix in the emergency room. We will hold that. I will hold his Lovenox on Friday. I di scussed the risk and the benefit of heart catheterization with possible coronary intervention on him on Friday. He agreed to proceed. Continue medical regimen. I will discuss the case further with Dr Estelle Camilo. RENALDO/ISAAC Voice ID: [id number] Report ID: [id number]
[2020-08-05] MEDS ORDERED: METOPROLOL TAR 50 MG TAB PO SCH (21:00)
[2020-08-05] MEDS: METOPROLOL TAR 25 MG TAB PO SCH ×2 (21:00→21:26)
[2020-08-05] MEDS: ATORVASTATIN 20 MG TAB PO SCH (21:25)
[2020-08-05] MEDS: lisinopriL 20 MG TAB PO SCH (21:25)
[2020-08-06 06:02] LABS: Basophils % 0.4 % (0-1.3); Hematocrit 43.4 % (39.6-49.0); Lymphocytes % 40.4 % (15.3-44.8); MPV 8.9 fL (7.6-11.3); RBC Red Blood Cell Count 4.59 M/uL (4.33-5.43)
--- NOTE | 2020-08-06 07:31 | EKG ---
Test Date: 2020-08-05 Test Time: 09:37:55 Pot Builder: ELO MEASUREMENT RESULTS: Intervals: Rate: 49 MD: 134 QRSD: 78 QT: 404 QTc: 364 [place]: P: 22 MD: 134 QRS: -44 T: 17 INTERPRETIVE STATEMENTS: Marked sinus bradycardia Left axis deviation Pulmonary disease pattern Septal infarct, age undetermined Abnormal ECG Compared to ECG 09/04/2017 16:11:02 Myocardial infarct finding now present Electronically Signed On 08-06-20 07:30:17 CREDIT AND COLLECTIONS ANALYST by Jin Stovall
--- NOTE | 2020-08-06 08:18 | P.PN ---
Subjective Date of Service: 08/06/20 Chief Complaint: chest pain, elevated troponin Subjective: No new changes, Doing well patient is in no pain. no other complaints. is prepared for cath tomorrow. Review of Systems 10-point ROS is otherwise unremarkable Physical Examination - Vital Signs Temperature: 97.9 F Blood Pressure: 133/82 Pulse: 78 Respirations: 18 Pulse Ox (%): 97 - Physical Exam General: Alert, In no apparent distress, Oriented x3, Cooperative HEENT: Atraumatic, Normocephalic, PERRLA, Mucous membr. moist/pink, EOMI, Sclerae nonicteric Neck: Supple, 2+ carotid pulse no bruit, JVD not distended, No Thyromegaly, No LAD Respiratory: Clear to auscultation bilaterally, Normal air movement Cardiovascular: No edema, Normal pulses, Regular rate/rhythm, Normal S1 S2, No gallops, No rubs, No murmurs Capillary refill: <2 Seconds Gastrointestinal: Normal bowel sounds, Soft and benign, Non-distended, No ascites, No tenderness, No masses, No rebound, No guarding Musculoskeletal: No clubbing, No swelling, No contractures, No erythema, No tenderness, No warmth Integumentary: No rashes, No breakdown, No significant lesion, No tenderness/swelling, No erythema, No warmth, No cyanosis Neurological: Normal gait, Normal speech, Normal strength at 5/5 x4 extr, Normal tone, Sensation intact, Cranial nerves 3-12 intact, Normal affect Lymphatics: No axilla or inguinal lymphadenopathy - Studies Laboratory Data (last 24 hrs) 08/05/20 09:49: PT 9.9, INR 0.86 08/05/20 09:49: WBC 4.20 L, Hgb 14.7, Hct 42.1, Plt Count 219 08/05/20 09:49: Sodium 142, Potassium 4.0, BUN 15, Creatinine 1.02, Glucose 98, Magnesium 2.2, Total Bilirubin 1.3 H, AST 21, ALT 42, Alkaline Phosphatase 108 Assessment And Plan - Current Problems (Diagnosis) (1) NSTEMI (non-ST elevated myocardial infarction) Current Visit: Yes Status: Acute Plan: in the ER, patient received aspirin, plavix, atorvastatin and lovenox. cardiology is on board and plans to cath on Friday. Lovenox will be held Friday. cardiology would like to continue full dose lovenox, aspirin, lisinopril, and statin, no heparin drip and no plavix. BB held due to sinus bradycardia, patient now has HR of 60, so gave 25mg of metoprolol in the ER. will continue 25mg BID of metoprolol if HR is >60 and SBP >100. patient currently without chest pain. CXR without findings. EKG showing sinus bradycardia. Troponins of 0.31, 0.22, 0.15. will continue to monitor. (2) Chest pain Current Visit: Yes Status: Acute Plan: PRN morphine and sublinguql NTG for chest pain. currently without pain. continue to monitor. Qualifiers: Chest pain type: unspecified Qualified Code(s): R07.9 - Chest pain, u nspecified (3) Elevated troponin Current Visit: Yes Status: Acute Plan: initial troponin 0.31. following 0.22 then 0.15. cath on Friday. continue to monitor. (4) Elevated blood pressure reading Current Visit: Yes Status: Acute Plan: started lisinopril 20 mg BID. BP well controlled. continue to monitor. (5) Essential tremor Current Visit: Yes Status: Acute Plan: patient occasionally takes propanolol 5mg for an essential tremor. currently stable. will continue to monitor. Discharge Plan: Home Plan to discharge in: 24 Hours - Code Status/Comfort Care Code Status Assessed: Yes (full code) Critical Care: No Time Spent Managing PTS Care (In Minutes): 55
[2020-08-06] MEDS: METOPROLOL TAR 25 MG TAB PO SCH ×2 (09:00→21:00)
[2020-08-06] MEDS: lisinopriL 20 MG TAB PO SCH ×2 (09:00→21:00)
[2020-08-06] MEDS: ASPIRIN EC 81 MG TAB PO SCH (09:25)
[2020-08-06] MEDS: ENOXAPARIN 80 MG/0.8 ML SQ SCH (09:25)
--- NOTE | 2020-08-06 09:51 | PN ---
Date of Progress Note: 08/06/2020 Subjective: Mr. Pulido is a patient with a very strong family history of heart disease, otherwise fa irly healthy. Came in yesterday with a non-ST elevation myocardial infarction. EKG showed sinus bra dycardia with nonspecific ST-T wave changes. He had been placed on metoprolol, lisinopril, aspirin, statin, and Lovenox. We will hold his Lovenox dose tonight, continue the aspirin and statin, metopro lol and lisinopril for CAD and hypertension and possible dyslipidemia. He is doing well today. No c hest pain. Ambulated without any discomfort. I will plan for a left heart catheterization with poss ible coronary intervention tomorrow morning. The case was discussed with the patient and his family, understand the risk and the benefits of the procedure and he agrees to proceed. RENALDO/ISAAC Voice ID: [id number] Report ID: [id number]
[2020-08-06] MEDS: ATORVASTATIN 20 MG TAB PO SCH (21:02)
[2020-08-07] MEDS: ASPIRIN EC 81 MG TAB PO SCH (06:02)
[2020-08-07] MEDS: METOPROLOL TAR 25 MG TAB PO SCH (09:00)
[2020-08-07] MEDS: lisinopriL 20 MG TAB PO SCH (09:00)
[2020-08-07] MEDS ORDERED: NA CHLORIDE 0.9% 500 ML ONE (09:16)
[2020-08-07] MEDS ORDERED: HEPA 1000U/500MLS 1,000 UNIT/500 ML BAG IV ONE (10:09)
[2020-08-07] MEDS ORDERED: FENTANYL CITR 100 MCG/2 ML ONE (10:10)
[2020-08-07] MEDS ORDERED: MIDAZOLAM HCL 2 MG/2 ML INJ ONE ×3 (10:10→10:38)
[2020-08-07] MEDS ORDERED: NA CHLORIDE 0.9% 50 ML ONE (10:11)
[2020-08-07] MEDS ORDERED: ATROPINE SULF 1 MG/10 ML SYR IV ONE (10:11)
[2020-08-07] MEDS ORDERED: PRASUGREL (EFFIENT) 10 MG TAB ONE (11:02)
[2020-08-07] MEDS ORDERED: ASPIRIN 325 MG TAB ONE (11:02)
--- NOTE | 2020-08-07 11:10 | OP ---
Surgeon: Jin Stovall MD Restaurant Team Member: Rebekah Hyatt. The patient will stay in the hospital for about 6-8 hours following the procedure. Hopefully, he david l go home today. I will send him home on aspirin, beta blockers, statin and Plavix. He will see me in the office in the next 2 weeks. Indication: Admitted to Dr. Camilo on 08/05/2020 with a non-STEMI. Procedure In Detail: The patient brought to the lab support technician today as an inpatient for non-STEMI, preppe d and draped in routine sterile fashion, given Versed and fentanyl for sedation. A 6-Kazakh sheath i ntroduced in the right common femoral artery successfully using the Seldinger technique. Angiography there was normal. StarClose was planned for closure. A 6-Kazakh catheter, JL4 and JR4 were used to do the diagnostic catheterization. A JL4 was used to cannulate the left main. He had a normal left main and normal circumflex. He had a 95% stenosis in the mid LAD after the first diagonal. He was right dominant. The JR4 cannulated the right main and the RCA is normal. He was right dominant. We decided to intervene in the LAD. An XB LAD 3.5 with side hole was used to cannulate the left main. A guidewire was used to cross the lesion successfully with a cougar wire 0.014. Angiomax was given prior to the intervention. ACT was adequate. A 2.5 x 16 Synergy stent was advanced over the wire in to the lesion. There was 0% residual after inflation of the stent to 14 atmospheres. There were no complications. Blood Loss: No blood loss, 5 mL only. Postoperative Diagnosis: Status post successful primary stent of the LAD mid level. We will continue medical therapy. The patient did receive aspirin and Effient in the lab support technician. Anesthesia: Total conscious sedation was 60 minutes. NB/MODL Voice ID: [id number] Report ID: [id number]
[2020-08-07] MEDS ORDERED: MORPHINE 4 MG/ML SYR IV PRN (12:36)
[2020-08-07] MEDS ORDERED: ZOLPIDEM TARTRATE 10 MG TABLET PO PRN (12:37)
[2020-08-07] MEDS ORDERED: NA CHLORIDE 0.9% 1,000 ML IV SCH (13:00)
[2020-08-07] MEDS ORDERED: NITROGLYCERIN 0.4 MG/TAB SL PRN (13:00)
[2020-08-07] MEDS ORDERED: ACETAMINOPHEN 325 MG TABLET PO PRN (13:00)
--- NOTE | 2020-08-07 15:29 | P.DS ---
Admission Date: 08/05/20 Discharge Date: 08/07/20 Primary Care Provider: Dr. Garcia Disposition: ROUTINE DISCHARGE Discharge Condition: GOOD Reason for Admission: chest pain, elevated troponin Consultations: Cardiology-Dr. Stovall Procedures: COVID: Negative Heart Cath: Surgeon: Jin Stovall MD [employer] Admin: Rebekah Hyatt. The patient will stay in the hospital for about 6-8 hours following the procedure. Hopefully, he will go home today. I will send him home on aspirin, beta blockers, statin and Plavix. He will see me in the office in the next 2 weeks. Indication: Admitted to Dr. Camilo on 08/05/2020 with a non-STEMI. Procedure In Detail: The patient brought to the slab polisher today as an inpatient for non-STEMI, prepped and draped in routine sterile fashion, given Versed and fentanyl for sedation. A 6-Emirati sheath introduced in the right common femoral artery successfully using the Seldinger technique. Angiography there was normal. StarClose was planned for closure. A 6-Emirati catheter, JL4 and JR4 were used to do the diagnostic catheterization. A JL4 was used to cannulate the left main. He had a normal left main and normal circumflex. He had a 95% stenosis in the mid LAD after the first diagonal. He was right dominant. The JR4 cannulated the right main and the RCA is normal. He was right dominant. We decided to intervene in the LAD. An XB LAD 3.5 with side hole was used to cannulate the left main. A guidewire was used to cross the lesion successfully with a cougar wire 0.014. Angiomax was given prior to the intervention. ACT was adequate. A 2.5 x 16 Synergy stent was advanced over the wire into the lesion. There was 0% residual after inflation of the stent to 14 atmospheres. There were no complications. Blood Loss: No blood loss, 5 mL only. Postoperative Diagnosis: Status post successful primary stent of the LAD mid level. We will continue medical therapy. The patient did receive aspirin and Effient in the slab polisher. Anesthesia: Total conscious sedation was 60 minutes. Medical Problem List: Chest pain secondary to NSTEMI with CAD, S/P Heart cath showing 95% stenosis to the Mid LAD requiring stent HTN Hyperlipidemia Alcohol use Brief History of Present Illness: 60 yo CM presented to the ER with chest pain. He was found to have an NSTEMI. He was admitted for treatment. Hospital Course: Patient presented with Chest pain secondary to NSTEMI. He was treated and evalu ated by Cardiology. Intervention was recommended. He has a Heart cath showing 95% stenosis to the Mid LAD. This required a stent with successful placement. He is without chest pain. At discharge he will continue with ASA 81 mg daily, Toprol XL 50 mg daily, Lipitor 40 mg daily and Plavix 75 mg daily. He will follow up with cardiology in 2 weeks. Post heart cath instructions given. Alcohol cessation addressed in detail. He has HTN. He will continue with Toprol XL as prescribed. He will also continue with Lipitor 40 mg daily as prescribded. Recommend to recheck lipid panel in 4-6 weeks to monitor his progress. Vital Signs/Physical Exam: Temp Pulse Resp BP Pulse Ox 96.9 F 47 L 15 104/44 L 99 08/07/20 12:16 08/07/20 12:16 08/07/20 12:16 08/07/20 12:16 08/07/20 08:00 General: Alert, In no apparent distress, Oriented x3, Cooperative HEENT: Atraumatic Neck: Supple Respiratory: Clear to auscultation bilaterally, Normal air movement Cardiovascular: Normal pulses, Regular rate/rhythm Gastrointestinal: Normal bowel sounds, No masses, No rebound, No guarding Neurological: Normal speech, Normal strength at 5/5 x4 extr, Normal tone, Normal affect Laboratory Data at Discharge: WBC 5.00 K/uL (4.3-10.9) D 08/06/20 05:09 Hgb 14.9 g/dL (13.6-17.9) 08/06/20 05:09 Hct 43.4 % (39.6-49.0) 08/06/20 05:09 Plt Count 212 K/uL (152-406) 08/06/20 05:09 PT 9.9 SECONDS (9.5-12.5) 08/05/20 09:49 INR 0.86 08/05/20 09:49 Sodium 143 mmol/L (136-145) 08/06/20 05:09 Potassium 4.0 mmol/L (3.5-5.1) 08/06/20 05:09 BUN 17 mg/dL (7-18) 08/06/20 05:09 Creatinine 1.04 mg/dL (0.55-1.3) 08/06/20 05:09 Glucose 101 mg/dL (74-106) 08/06/20 05:09 Magnesium 2.2 mg/dL (1.8-2.4) 08/05/20 09:49 Total Bilirubin 1.3 mg/dL (0.2-1.0) H 08/05/20 09:49 AST 21 U/L (15-37) 08/05/20 09:49 ALT 42 U/L (12-78) 08/05/20 09:49 Alkaline Phosphatase 108 U/L (45-117) 08/05/20 09:49 Troponin I 0.15 ng/mL (0.0-0.045) H 08/06/20 01:40 Triglycerides 277 mg/dL (<150) H 08/05/20 18:01 Cholesterol 197 mg/dL (<200) 08/05/20 18:01 HDL Cholesterol 44 mg/dL (40-60) 08/05/20 18:01 Cholesterol/HDL Ratio 4.48 08/05/20 18:01 Home Medications: Propranolol HCl 20 mg PO DAILYPRN PRN 09/04/17 Physician Discharge Instructions: Patient presented with Chest pain secondary to NSTEMI. He was treated and evaluated by Cardiology. Intervention was recommended. He has a Heart cath showing 95% stenosis to the Mid LAD. This required a stent with successful placement. He is without chest pain. At discharge he will continue with ASA 81 mg daily, Toprol XL 50 mg daily, Lipitor 40 mg daily and Plavix 75 mg daily. He will follow up with cardiology in 2 weeks. Post heart cath instructions given. Alcohol cessation addressed in detail. He has HTN. He will continue with Toprol XL as prescribed. He will also continue with Lipitor 40 mg daily as prescribded. Recommend to recheck lipid panel in 4-6 weeks to monitor his progress. Diet: AHA Activity: Ad matthieu Followup: Artemio Garcia MD [Primary Care Provider] - Time spent managing pt's care (in minutes): 55
[2020-08-07 15:40] VITALS: TEMP 98; O2SAT 98
[2020-08-07 15:41] VITALS: BP 118/58
--- NOTE | 2020-08-07 17:12 | EKG ---
Test Date: 2020-08-06 Test Time: 02:53:08 Channel Opener: KYLE MEASUREMENT RESULTS: Intervals: Rate: 42 [place]: 156 QRSD: 82 QT: 434 QTc: 362 [place]: P: 35 [place]: 156 QRS: -35 T: 13 INTERPRETIVE STATEMENTS: Marked sinus bradycardia Left axis deviation Nonspecific T wave abnormality Abnormal ECG Compared to ECG 08/05/2020 09:37:55 T-wave abnormality now present Myocardial infarct finding no longer present Electronically Signed On 08-07-20 17:06:37 SCREW DRIVER OPERATOR by Jin Stovall
[2020-08-08] MEDS ORDERED: CLOPIDOGREL 75 MG TABLET PO SCH (09:00)
[2020-08-08] MEDS ORDERED: ASPIRIN 81 MG CHEWABLE TABLET PO SCH (09:00)
[2020-08-08] MEDS ORDERED: ENOXAPARIN 40 MG/0.4 ML SQ SCH (09:00)
--- NOTE | 2020-08-08 09:35 | ECHO ---
HEIGHT: 5 ft 8 in WEIGHT: 187 lb 0 oz DATE OF STUDY: 08/07/[address]: Jin Stovall MD 2-DIMENSIONAL: YES M.MODE: YES DOPPLER: YES COLOR FLOW: YES TDS: NON PORTABLE: NO DEFINITY: NO BUBBLE STUDY: NO DIAGNOSIS: NSTEMI CARDIAC HISTORY: CATHERIZATION: YES SURGERY: NO PROSTHETIC VALVE: NO PACEMAKER: NO MEASUREMENTS (cm) DIASTOLIC (NORMALS) SYSTOLIC (NORMALS) IVSd 1.0 (0.6-1.2) LA Diam 2.4 (1.9-4.0) LVEF 80% LVIDd 4.6 (3.5-5.7) LVIDs 2.4 (2.0-3.5) %FS 49% LVPWd 1.2 (0.6-1.2) Ao Diam 2.5 (2.0-3.7) 2 DIMENSIONAL ASSESSMENT: RIGHT ATRIUM: NORMAL LEFT ATRIUM: NORMAL RIGHT VENTRICLE: NORMAL LEFT VENTRICLE: NORMAL TRICUSPID VALVE: NORMAL MITRAL VALVE: NORMAL PULMONIC VALVE: NORMAL AORTIC VALVE: NORMAL PERICARDIAL EFFUSION: NONE AORTIC ROOT: NORMAL LEFT VENTRICULAR WALL MOTION: NORMAL DOPPLER/COLOR FLOW: NORMAL COMMENTS: NORMAL 2D ECHOCARDIOGRAM WITH DOPPLER. NO WALL MOTION ABNORMALITY. NO EFFUSION. TECHNOLOGIST: Tahmina YBARRA
== END 2020-08-07 16:49 | disposition home or self-care (01) | DRG 247 ==
LOC: ER 09:20 → ERHOLD 12:32 → 2ND 14:17
PROVIDERS: ADMIT Hospitalist; ATTEND Family Medicine
PROC: 027034Z Dilation of Coronary Artery, One Artery with Drug-eluting Intraluminal Device, Percutaneous Approach (ICD-10-PCS; principal; 2020-08-07)
PROC: 4A023N7 Measurement of Cardiac Sampling and Pressure, Left Heart, Percutaneous Approach (ICD-10-PCS; 2020-08-07)
PROC: B2111ZZ Fluoroscopy of Multiple Coronary Arteries using Low Osmolar Contrast (ICD-10-PCS; 2020-08-07)
DX: I21.4 Non-ST elevation (NSTEMI) myocardial infarction (principal); G25.0 Essential tremor; N40.0 Benign prostatic hyperplasia without lower urinary tract symptoms; I25.10 Atherosclerotic heart disease of native coronary artery without angina pectoris; I10 Essential (primary) hypertension; E78.5 Hyperlipidemia, unspecified; R77.8 Other specified abnormalities of plasma proteins; Z20.822 Contact with and (suspected) exposure to COVID-19
CPT/HCPCS: 36415; 71045; 80048; 80061; 80076; 81003; 83735; 83880; 84484; 85025; 85347; 85610; 92928; 93005; 93306; 93454; 94760; 96372; 99285; C1725; C1877; C1893; J0583; J1644; J2250; J3010; J7030; J7040; U0003